=== PATIENT | female | born 1970 ===

== ENCOUNTER 2020-06-08 16:50 | Inpatient (IN) ==
[2020-06-08 18:11] LABS: Urine Appearance Cloudy; Urine Bilirubin Negative (Negative); Urine Blood Negative (Negative); Urine Color Yellow; Urine Glucose Negative (Negative); Urine Ketones Negative (Negative); Urine Nitrite Negative (Negative); Urine Protein Negative (Negative); Urine Specific Gravity 1.013 (1.002-1.030); Urine Urobilinogen Negative (Negative)
[2020-06-08 18:27] LABS: Urine Benzodiazepine Screen None Detected (None Detect); Urine Cannabinoids Screen None Detected (None Detect); Urine Opiates Screen None Detected (None Detect)
[2020-06-08 19:19] LABS: ABS Basophils 0.1 10^3/ul (0-0.2); ABS Eosinophils 0.2 10^3/ul (0-0.6); ABS Lymphocytes 3.9 10^3/ul (1.0-4.8); ABS Monocytes 0.7 10^3/ul (0-0.8); Eosinophil % 1.6 %; Hematocrit 38 % (35-47); Hemoglobin 12.5 g/dL (12.0-16.0); Lymphocyte % 26.2 %; Mean Corpuscular HGB Conc 33 g/dL (31-36); Mean Corpuscular Hemoglobin 28 pg (27-31); Mean Corpuscular Volume 86 fL (80-97); Platelet Count 367 10^3/uL (150-450); Red Blood Count 4.43 10^6 /uL (3.70-4.87); Red Cell Distribution Width 16 % (10-15)
[2020-06-08 19:46] LABS: ALT 18 U/L (7-52); AST 22 U/L (13-39); Albumin 4.3 g/dL (3.2-5.2); Albumin/Globulin Ratio 1.1 (1-3); Alcohol, S < 10 mg/dL (<10); Alkaline Phosphatase 98 U/L (34-104); Anion Gap 11 mmol/L (2-11); BUN/Creatinine Ratio 16.7 (8-20); Blood Urea Nitrogen 12 mg/dL (6-24); CO2 Carbon Dioxide 22 mmol/L (22-32); Calcium 9.4 mg/dL (8.6-10.3); Chloride 102 mmol/L (101-111); EGFR African American 104.2 (>60); EGFR Non-African American 86.1 (>60); Glucose 102 mg/dL (70-100); Potassium 3.7 mmol/L (3.5-5.0); Salicylate < 2.50 mg/dL (<30); Sodium 135 mmol/L (135-145); Total Protein 8.3 g/dL (6.4-8.9)
[2020-06-08 19:47] LABS: Acetaminophen < 15 mcg/mL
[2020-06-08 19:50] LABS: HCG Pregnancy 0.78 mIU/mL
[2020-06-08 19:58] LABS: TSH Ultra Thyroid Stim Horm 2.19 mcIU/mL (0.34-5.60)
[2020-06-08] MEDS ORDERED: Al Hydrox/Mg Hydrox/Simet LIQ 30 ML UDC PO PRN (23:24)
[2020-06-09] MEDS: Vitamin THERAPEUTIC TAB PO SCH (10:57)
[2020-06-10 08:23] LABS: HDL Cholesterol 59.6 mg/dL
[2020-06-10] MEDS: Vitamin THERAPEUTIC TAB PO SCH (09:13)
[2020-06-10] MEDS: Coenzyme Q10 CAP (NF) ** 100 MG PO SCH (09:17)
[2020-06-11] MEDS: Vitamin THERAPEUTIC TAB PO SCH (07:57)
[2020-06-11] MEDS: Coenzyme Q10 CAP (NF) ** 100 MG PO SCH (07:59)
[2020-06-12] MEDS: Vitamin THERAPEUTIC TAB PO SCH (10:04)
[2020-06-12] MEDS: Coenzyme Q10 CAP (NF) ** 100 MG PO SCH (10:07)
[2020-06-13] MEDS: Vitamin THERAPEUTIC TAB PO SCH (09:26)
[2020-06-13] MEDS: Coenzyme Q10 CAP (NF) ** 100 MG PO SCH (09:38)
[2020-06-14] MEDS: Coenzyme Q10 CAP (NF) ** 100 MG PO SCH (07:40)
[2020-06-14] MEDS: Vitamin THERAPEUTIC TAB PO SCH (08:40)
[2020-06-15] MEDS: Vitamin THERAPEUTIC TAB PO SCH (09:16)
[2020-06-16] MEDS: Vitamin THERAPEUTIC TAB PO SCH (08:59)
[2020-06-17] MEDS: Vitamin THERAPEUTIC TAB PO SCH (08:52)
[2020-06-18] MEDS: Vitamin THERAPEUTIC TAB PO SCH (08:56)
[2020-06-19] MEDS: Vitamin THERAPEUTIC TAB PO SCH (08:53)
[2020-06-20] MEDS: Vitamin THERAPEUTIC TAB PO SCH (09:43)
[2020-06-21] MEDS: Vitamin THERAPEUTIC TAB PO SCH (08:37)
[2020-06-21 17:31] VITALS: BP 129/78
[2020-06-22] MEDS: Vitamin THERAPEUTIC TAB PO SCH (08:46)
== END 2020-06-22 09:46 | disposition home or self-care (01) | DRG 750 ==
LOC: ED 16:50 → BSU 22:38
PROVIDERS: ADMIT Psychiatry & Neurology Psychiatry; ATTEND Psychiatry & Neurology Psychiatry